=== PATIENT | male | born 1980 | race Hispanic/Latino ===

== ENCOUNTER → 2019-05-04 | Outpatient (CLI) | payer BC, OTHER ==
--- NOTE | 2019-05-04 14:36 | REP ---
Clinical: Positive PPD test . Comparison: None . Technique: PA and lateral. Findings: The mediastinum and cardiac silhouette are normal. The lung roque are clear and without acute consolidation, effusion, or pneumothorax. The skeletal structures are intact and normal. Impression: 1. No acute cardiopulmonary process. Electronically Signed by Pratik Salgado MD 05/04/2019 02:26 P
== END ==
LOC: M WUC 13:54
DX: R76.11 Nonspecific reaction to tuberculin skin test without active tuberculosis (principal)